=== PATIENT | female | born 1955 | race Caucasian/White ===

== ENCOUNTER 2023-12-18 12:07 | Outpatient (REF) | payer MEDICARE, SELFPAY ==
--- NOTE | ~2023-12-18 | US_ITS ---
EXAMINATION: US TRIPLEX LOWER EXTREMITY, LEFT CLINICAL INFORMATION: Left lower extremity pain COMPARISON: None available. TECHNIQUE: Color-flow triplex imaging with spectral analysis and compression Doppler were performed on the left lower extremity. FINDINGS: Respiratory variation, normal compression and augmented flow are noted throughout the left lower extremity. The visualized common femoral vein, superficial femoral vein, profunda femoral vein, popliteal vein and midcalf peroneal and posterior tibial venous segments show no evidence of deep venous thrombosis. There is no Adames's cyst. Within the left lateral thigh in the area of pain, there is a small hypoechoic nodule measuring 1.2 x 1.1 x 1.3 cm without significant vascular flow US/US venous duplex LE LT IMPRESSION: 1. No evidence of deep venous thrombosis involving the left lower extremity. 2. Small hypoechoic nodule in the left lateral thigh in the area of pain. This is nonspecific and could represent a small hematoma or seroma. Electronically signed by: Terell Fox MD 12/18/2023 01:30 PM EDT
== END 2023-12-18 12:08 | disposition home or self-care (01) ==
LOC: HO.US 12:07
PROVIDERS: PCP Internal Medicine Medical Oncology; Visit Provider Internal Medicine Medical Oncology
DX: M79.605 Pain in left leg (principal); I82.402 Acute embolism and thrombosis of unspecified deep veins of left lower extremity
CPT/HCPCS: 93971